=== PATIENT | female | born 1955 | race Caucasian/White ===

== ENCOUNTER → 2019-08-11 | Day surgery (SDC) | payer BC, OTHER ==
[~2019-08-11] MED LIST: ATENOLOL50 MG PO; ELIQUIS5 MG PO; EPHEDRINE SULFATE INJ 50 MG/ML VIAL ONE; FUROSEMIDE40 MG PO; LANSOPRAZOLE30 MG PO; LEVOTHYROXINE200 MCG PO; LIPITOR20 MG PO; POTASSIUM CHLO10 ME1 PO; PROPOFOL IV EMULSION 10 MG/ML 20 ML VIAL ONE
[2019-08-11 13:55] VITALS: BP 102/57
== END | disposition home or self-care (01) ==
LOC: OR 09:15
PROVIDERS: ATTEND Internal Medicine Gastroenterology
DX: D12.0 Benign neoplasm of cecum (principal); D12.2 Benign neoplasm of ascending colon; D12.4 Benign neoplasm of descending colon; D12.8 Benign neoplasm of rectum; K64.8 Other hemorrhoids; K22.70 Barrett's esophagus without dysplasia; E11.9 Type 2 diabetes mellitus without complications; E03.9 Hypothyroidism, unspecified; K46.9 Unspecified abdominal hernia without obstruction or gangrene; I25.10 Atherosclerotic heart disease of native coronary artery without angina pectoris; I50.9 Heart failure, unspecified; I48.92 Unspecified atrial flutter; Z01.812 Encounter for preprocedural laboratory examination; Z11.59 Encounter for screening for other viral diseases; Z79.02 Long term (current) use of antithrombotics/antiplatelets
CPT/HCPCS: 36415; 45381; 45384; 45385; 82948; 87635; J2704; 45378